=== PATIENT | female | born 1975 | race Caucasian/White ===

== ENCOUNTER 2016-10-08 17:42 | Emergency (ER) | payer BC, MEDICAID ==
[~2016-10-08] VITALS: Wt 69.0 kg
[~2016-10-08 17:42] MED LIST: ADVAIR INH; CETI10CA PO; DOXY100T20 PO; PREN1TAB49 PO; RTPRO NEB; UDROBDM PO; XOP15INH; XOP15INH INH
[2016-10-08 19:09] LABS: BASOPHILS % 0.4 % (0.0-2.0); EOSINOPHILS # 0.2 10^3/ul (0.0-0.5); EOSINOPHILS % 2.5 % (0.0-7.0); HEMATOCRIT 38.2 % (37.0-47.0); HEMOGLOBIN 12.7 g/dl (12.0-16.0); LYMPHOCYTES # 1.9 10^3/ul (0.8-2.9); LYMPHOCYTES % 32.1 % (15.0-51.0); MEAN CORPUSCULAR HEMOGLOBIN 26.2 pg (29.0-33.0); MEAN CORPUSCULAR HGB CONC 33.2 g/dl (32.0-37.0); MEAN CORPUSCULAR VOLUME 78.8 fl (82.0-101.0); MEAN PLATELET VOLUME 8.4 fl (7.4-10.4); MONOCYTE # 0.5 10^3/ul (0.3-0.9); MONOCYTES % 9.1 % (0.0-11.0); NEUTROPHIL # 3.3 10^3/ul (1.6-7.5); NEUTROPHILS % 55.9 % (39.0-77.0); PLATELET COUNT 265 10^3/UL (140-440); RED BLOOD COUNT 4.84 10^6/ul (4.20-5.40); RED CELL DISTRIBUTION WIDTH 15.8 % (11.5-14.5)
[2016-10-08 19:12] LABS: CONDITION 1; LH ANALYZER COMMENTS 1
[2016-10-08 19:14] LABS: ADD UMIC YES; URINE BILIRUBIN (Dip) NEGATIVE (NEGATIVE); URINE BLOOD (Dip) NEGATIVE (NEGATIVE); URINE COLOR LT. YELLOW (YELLOW); URINE GLUCOSE (Dip) NEGATIVE (NEGATIVE); URINE KETONES (Dip) NEGATIVE (NEGATIVE); URINE LEUKOCYTE ESTERASE (Dip) TRACE (NEGATIVE); URINE NITRITE (Dip) NEGATIVE (NEGATIVE); URINE TOTAL PROTEIN (Dip) NEGATIVE (NEGATIVE); URINE UROBILINOGEN (Dip) 0.2 E.U./dL (0.1-1.0)
[2016-10-08 19:19] LABS: ALBUMIN 4.3 g/dl (3.3-4.9); POTASSIUM 4.1 mmol/L (3.5-5.1)
[2016-10-08 19:22] LABS: ALBUMIN/GLOBULIN RATIO 1.26; BILIRUBIN,INDIRECT 0.3 mg/dl (0-1.1); BILIRUBIN,TOTAL 0.3 mg/dl (0.2-1.3); CREATININE 0.52 mg/dl (0.44-1.00); TOTAL PROTEIN 7.7 g/dl (6.1-8.1)
[2016-10-08 19:23] LABS: CALCIUM 9.2 mg/dl (8.4-10.2)
[2016-10-08 19:27] LABS: BACTERIA,URINE RARE; SQUAMOUS EPITHELIAL CELL,UR FEW; URINE RBCS NONE SEEN /HPF (0)
[2016-10-08] MEDS ORDERED: IBUP-1542 PO (19:59)
--- NOTE | 2016-10-08 20:00 | ERD ---
ER Documentation Chief Complaint Date/Time DATE: 10/08/16 TIME: 19:59 Chief Complaint NUMBNESS TO HANDS AND FEET FOR THE PAST MONTH. NO TRAUMA NO NEURO DEF HPI This 5-year-old female complains of paresthesias in her hands and feet for last month. She has a history of trauma, fevers, vomiting, shortness breath chest pain. ROS All systems reviewed and are negative except as per history of present illness. Medications Home Meds Active Scripts Ibuprofen* (Motrin*) 600 Mg Tab, 600 MG PO Q6, #15 TAB Prov:SRIDHAR SANCHEZ MD 10/08/16 Doxycycline Hyclate* (Doxycycline Hyclate*) 100 Mg Tablet.dr, 100 MG PO BID for 7 Days, TAB Prov:ALEX CORTEZC 02/21/16 Cetirizine Hcl* (Zyrtec*) 10 Mg Capsule, 10 MG PO DAILY, #20 TAB.CHEW Prov:ALEX CORTEZ PA-C 02/21/16 Guaifenesin-Dextromethorphan* (Robitussin* DM) 100MG/10MG/5ML Syrup, 10 ML PO Q6H Y for COUGH for 5 Days, ML Prov:ALEX CORTEZC 02/21/16 Albuterol Sulfate* (Proventil* Neb) 0.083% Neb, 2.5 MG NEB Q4 Y for SHORTNESS OF BREATH, #30 EA Prov:ALEX CORTEZC 02/21/16 Levalbuterol* (Xopenex* HFA) 15 Gm Inha, 2 PUFFS INH Q4H Y for WHEEZING AND SOB , #1 INHALER Prov:ALEX CORTEZC 02/21/16 Reported Medications [Advair] No Conflict Check, INH BID 10/02/11 Vits W-Ca,Fe,Fa(<1MG) () 1 Tab Tablet, 1 PO DAILY 08/28/11 Levalbuterol* (Xopenex* HFA) 15 Gm Inha 10/11/10 Allergies Allergies: Coded Allergies: No Known Drug Allergy (Verified Allergy, Unknown, 10/02/11) PMhx/Soc Medical and Surgical Hx: pt denies Medical Hx, pt denies Surgical Hx History of Surgery: No Anesthesia Reaction: No Hx Neurological Disorder: No Hx Respiratory Disorders: No Hx Cardiac Disorders: No Hx Psychiatric Problems: No Hx Miscellaneous Medical Probl: No Hx Alcohol Use: No Hx Substance Use: No Hx Tobacco Use: No Smoking Status: Never smoker Physical Exam Vitals Vital Signs Date Time Temp Pulse Resp B/P Pulse Ox O2 Delivery O2 Flow Rate FiO2 10/08/16 18:29 98.5 72 18 129/72 100 Physical Exam Const: [] Alert, [id number]. Head: Atraumatic Eyes: Normal Conjunctiva ENT: Normal External Ears, Nose and Mouth. Neck: Full range of motion..~ No meningismus. Resp: Clear to auscultation bilaterally Cardio: Regular rate and rhythm, no murmurs Abd: Soft, non tender, non distended. Normal bowel sounds Skin: No petechiae or rashes Back: No midline or flank tenderness Ext: No cyanosis, or edema Neur: Awake and alert. Normal gait. No appreciable focal neurologic deficits. Cranial nerves II through XII grossly intact. Psych: Normal Mood and Affect Result Diagram: 10/08/16185410/08/161854 Results 24 hrs Laboratory Tests Test 10/08/16 18:55 10/08/16 18:57 Alanine Aminotransferase (ALT/SGPT) 27IU/L Albumin 4.3g/dl Albumin/Globulin Ratio 1.26 Alkaline Phosphatase 68IU/L Anion Gap 16 Aspartate Amino Transf (AST/SGOT) 28IU/L Basophils # 0.010^3/ul Basophils % 0.4% Blood Morphology Comment Blood Urea Nitrogen 12mg/dl Calcium Level 9.2mg/dl Carbon Dioxide Level 27mmol/L Chloride Level 103mmol/L Creatinine 0.52mg/dl Direct Bilirubin 0.00mg/dl Eosinophils # 0.210^3/ul Eosinophils % 2.5% Globulin 3.40g/dl Glucose Level 91mg/dl Hematocrit 38.2% Hemoglobin 12.7g/dl Indirect Bilirubin 0.3mg/dl Lymphocytes # 1.910^3/ul Lymphocytes % 32.1% Mean Corpuscular Hemoglobin 26.2pg Mean Corpuscular Hemoglobin Concent 33.2g/dl Mean Corpuscular Volume 78.8fl Mean Platelet Volume 8.4fl Monocytes # 0.510^3/ul Monocytes % 9.1% Neutrophils # 3.310^3/ul Neutrophils % 55.9% Nucleated Red Blood Cells # 0.010^3/ul Nucleated Red Blood Cells % 0.0/100WBC Platelet Count 10285^3/UL Potassium Level 4.1mmol/L Red Blood Count 4.8410^6/ul Red Cell Distribution Width 15.8% Sodium Level 142mmol/L Total Bilirubin 0.3mg/dl Total Protein 7.7g/dl White Blood Count 6.010^3/ul Urine Bacteria RARE Urine Bilirubin NEGATIVE Urine Clarity CLEAR Urine Color LT. YELLOW Urine Glucose NEGATIVE% Urine Hemoglobin NEGATIVE Urine Ketones NEGATIVE Urine Leukocyte Esterase TRACE Urine Microscopic RBC NONE SEEN/HPF Urine Microscopic WBC 2-5/HPF Urine Nitrite NEGATIVE Urine Specific [place] <=1.005 Urine Squamous Epithelial Cells FEW Urine Total Protein NEGATIVE Urine Urobilinogen 0.2 E.U./dL Urine pH 7.0 Procedures/MDM Given the uncertain cause symptoms of CBC and CMP were normal. Urine shows trace leukocytes but scant bacteria. I doubt leukocytes are the cause of her symptoms. She has paresthesias of uncertain etiology. She will be offered her primary care doctor for further evaluation and management possible neurology evaluation. Patient has no signs or symptoms of any significant acute illness. She should return for fevers, vomiting, shortness breath, chest pain, new or worsening symptoms as directed after instructions. Departure Diagnosis: Primary Impression: Numbness Condition: Stable Patient Instructions: Paraesthesias [facility] Usted se salgado hecho un examen mdico de control que le indica que no est en alexis condicin que requiera tratamiento urgente en el Departamento de Emergencia. Un estudio ms profundo y el tratamiento de mcgee condicin pueden esperar sin ningn riesgo hasta que usted sea atendida/o en el consultorio de mcgee mdico o alexis cl jj. Es responsabilidad suya arreglar alexis aayush para el seguimiento del ama. MANEJO DE CONDICIONES NO URGENTES EN EL FUTURO 1) Si usted tiene un mdico de atencin primaria: Usted debera llamar a mcgee mdico de atencin primaria antes de venir al departamento de emergencia. Despus de las horas de consultorio, mcgee doctor o mcgee asociado/a est disponible por telfono. El mdico o enfermero de darien en el servicio telefnico puede asesorarle por ashvin medio para atender el problema, o ama contrario se puede programar alexis aayush. 2) Si usted no tiene un mdico de atencin primaria: Llame al mdico o clnica de referencia que aparece abajo jamel las horas de consultorio para hacer alexis aayush para que le vean. CLINICAS: [place] [phone] [id number] [facility] [phone] [address] [facility] [phone] [address] [facility]. [place] [phone] [facility]. [place] [id number] [phone] [facility]. [phone] [address] Additional Instructions: Examines normal hoy. Cheque otro vez con mcgee doctor primario en el proximo poe or regresa para mas o nueva simptomas. SRIDHAR SANCHEZ MD Oct 08, 2016 20:00
[2016-10-08 20:06] VITALS: BP 114/76; PULSE 64; RESP 18; TEMP 98.5
== END 2016-10-08 20:13 | disposition home or self-care (01) ==
LOC: FTE 17:42
DX: R20.0 Anesthesia of skin (principal)
CPT/HCPCS: 36415; 80053; 81001; 85025; Z7502; 81003; 99283